=== PATIENT | female | born 1990 | race Caucasian/White ===

== ENCOUNTER 2024-12-10 13:17 | Emergency (ER) | payer OTHER, MEDICAID ==
[~2024-12-10] VITALS: Ht 152.4 cm; Wt 72.1 kg
[2024-12-10 13:21] VITALS: O2SAT 100
[2024-12-10] MEDS: KETOROLAC 15MG/ML VIAL IM ONE (15:07)
[2024-12-10] MEDS: DEXAMETHASONE 10 MG/ML VIAL IM ONE (15:07)
[2024-12-10] MEDS ORDERED: IBUP-2029 MT (16:42)
[2024-12-10] MEDS ORDERED: LIDO-53 TP (16:42)
[2024-12-10] MEDS ORDERED: METH4TAB95 MT (16:42)
[2024-12-10] MEDS: LIDOCAINE 5% PATCH TOP STA (16:50)
[2024-12-10 17:20] VITALS: BP 118/68; PULSE 88; RESP 18; TEMP 37.1; O2SAT 100
== END 2024-12-10 17:22 | disposition home or self-care (01) ==
LOC: ER 13:17
DX: M54.17 Radiculopathy, lumbosacral region (principal); F41.9 Anxiety disorder, unspecified; Z98.890 Other specified postprocedural states; Z88.8 Allergy status to other drugs, medicaments and biological substances
CPT/HCPCS: 99284; 81025; 72100; 96372; J1885; J1100